=== PATIENT | female | born 1975 | race Caucasian/White ===

== ENCOUNTER 2016-10-09 10:20 | Emergency (ER) | payer OTHER ==
[~2016-10-09] VITALS: Ht 160 cm; Wt 95.0 kg
[~2016-10-09 10:20] MED LIST: CYCL-36 PO; IBUP-232 PO; Z.0.NO CURRENT MEDS
[2016-10-09 10:22] VITALS: BP 154/89; PULSE 86; RESP 24; TEMP 97.9; O2SAT 99
[2016-10-09] MEDS ORDERED: SODIUM CHLOR 0.9% 1000 ML INJ 1,000 ML IV SCH (10:49)
[2016-10-09] MEDS ORDERED: CETI10CA3 (10:52)
[2016-10-09] MEDS ORDERED: KETOROLAC TROMETHAMINE 30 MG/ML (IVP) VIAL IVP ONE (11:00)
[2016-10-09] MEDS ORDERED: ONDANSETRON HCL 4 MG/2 ML VIAL IVP ONE (11:00)
[2016-10-09] MEDS ORDERED: SODIUM CHLORIDE 0.9% FLUSH 10 ML FLUSH IV FLUSH PRN (11:00)
[2016-10-09 11:12] LABS: BACTERIA, URINE RARE /hpf; BLOOD, URINE SMALL (NEG); COMMENT (UR) CULT NOT INDICATED; CULTURE IF INDICATED CULT NOT INDICATED; GLUCOSE,URINE NEG (NEG); KETONE, URINE NEG (NEG); NITRITE,URINE NEG (NEG); PH, URINE 5.5 (5.0-8.5); SQUAMOUS EPITHELIAL CELL URINE 2 /hpf (0-5); URINE COLOR LIGHT-YELLOW (YELLW/STRAW)
[2016-10-09 11:13] LABS: AUTOMATED NEUTROPHIL # 4.8 TH/MM3 (1.8-7.7); BASOPHIL % 0.2 % (0.0-2.0); EOSINOPHIL # 0.1 TH/MM3 (0-0.4); EOSINOPHIL % 1.4 % (0.0-4.0); HEMATOCRIT 45.8 % (35.0-46.0); HEMO FLAGS DIFF FINAL; LYMPH % 31.8 % (9.0-44.0); LYMPHOCYTE # 2.6 TH/MM3 (1.0-4.8); MEAN CELL VOLUME 93.8 FL (80.0-100.0); MEAN CORPUSCULAR HEMOGLOBIN 31.6 PG (27.0-34.0); MEAN CORPUSCULAR HGB CONC 33.6 % (32.0-36.0); MONO % 7.6 % (0.0-8.0); PLATELET COUNT 263 TH/MM3 (150-450); RED BLOOD COUNT 4.88 MIL/MM3 (4.00-5.30); RED CELL DISTRIBUTION WIDTH 12.8 % (11.6-17.2); WHITE BLOOD COUNT 8.2 TH/MM3 (4.0-11.0)
[2016-10-09 11:29] LABS: ALT (GPT) 18 U/L (10-53); ANION GAP 8 MEQ/L (5-15); AST (GOT) 16 U/L (15-37); BICARBONATE 22.2 MEQ/L (21.0-32.0); BLOOD UREA NITROGEN 15 MG/DL (7-18); CHLORIDE 108 MEQ/L (98-107); GLOMERULAR FILTRATION RATE 78 ML/MIN (>89); POTASSIUM 3.9 MEQ/L (3.5-5.1); SODIUM (NA) 138 MEQ/L (136-145)
[2016-10-09 11:31] LABS: ALKALINE PHOSPHATASE 53 U/L (45-117); TOTAL BILIRUBIN ADULT 0.4 MG/DL (0.2-1.0)
--- NOTE | 2016-10-09 11:39 | RADRPT ---
EXAM DATE/TIME: 10/09/2016 11:24 [place] COMPARISON: No previous studies available for comparison. INDICATIONS : Lower left quadrant pain. ORAL CONTRAST: No oral contrast ingested. RADIATION DOSE: 24.61 CTDIvol (mGy) MEDICAL HISTORY : None SURGICAL HISTORY : None. ENCOUNTER: Initial ACUITY: 1 day PAIN SCALE: 7/10 LOCATION: Bilateral lower quadrant TECHNIQUE: Volumetric scanning of the abdomen and pelvis was performed. Using automated exposure control and ad justment of the mA and/or kV according to patient size, radiation dose was kept as low as reasonably achievable to obtain optimal diagnostic quality images. FINDINGS: Lung bases are clear. No acute findings in the liver, spleen, adrenals, kidneys or pancreas. Specific ally no hydronephrosis or evidence for obstructive uropathy. Previous cholecystectomy with surgical c lips in the right upper quadrant. There is fairly diffuse mural thickening of the left side of the transverse colon and left colon kenia acteristic of a mild colitis. There are also numerous diverticula and there is some additional inflam matory change around the diverticulum in the proximal sigmoid colon suggesting a mild diverticulitis as well. There is no free air. No drainable abscess. Trace free fluid in the pelvis. No bowel obstruction. CONCLUSION: 1. CT findings are most characteristic of a mild left-sided colitis and associated mild diverticuliti s in the proximal sigmoid as well. No abscess, obstruction or free air. Trace free fluid. No evidence for obstructive uropathy. Kam López MD on October 09, 2016 at 11:32 Board Certified Radiologist. This report was verified electronically.
[2016-10-09] MEDS ORDERED: CIPR500T2 PO (12:10)
[2016-10-09] MEDS ORDERED: METR-1 PO (12:10)
[2016-10-09] MEDS ORDERED: HYDR-3533 PO (12:10)
--- NOTE | 2016-10-09 12:11 | PD ---
HPI Chief Complaint: Abdominal Pain Time Seen by Provider: 10:45 Travel History International Travel<30 days: No Contact w/Intl Traveler<30days: No Traveled to known affect area: No History of Present Illness HPI 41-year-old female arrives with left lower quadrant pain which woke her up at about 3 or so in the morning. It radiates across the suprapubic abdomen to the right side. She's had nausea. No vomiting fever or diarrhea reported. Positive chills reported. No vaginal bleeding or discharge. Last menstruation 2 weeks prior. She is a history of kidney stones however states symptoms today feel different. PFSH Past Medical History Diminished Hearing: No Kidney Stones: Yes Seizures: Yes ?: Not LMP: 2 weeks ago : 3 Para: 3 Past Surgical History Section: Yes (X 3) Social History Alcohol Use: Yes ("OCCASIONALLY") Tobacco Use: Yes (< 1/2 PPD) Substance Use: No Allergies-Medications (Allergen,Severity, Reaction): Coded Allergies: No Known Allergies (Verified , 10/09/16) Reported Meds & Prescriptions Reported Meds & Active Scripts Active Reported Zyrtec (Cetirizine HCl) 10 Mg Capsule Review of Systems Except as stated in HPI: all other systems reviewed are Neg Gastrointestinal: Positive: Nausea Physical Exam Narrative GENERAL: 41-year-old female well-nourished well-developed moderate distress SKIN: Focused skin assessment warm/dry. HEAD: Atraumatic. Normocephalic. EYES: Pupils equal and round. No scleral icterus. No injection or drainage. ENT: No nasal bleeding or discharge. Mucous membranes pink and moist. NECK: Trachea midline. No JVD. CARDIOVASCULAR: Regular rate and rhythm. No murmur appreciated. RESPIRATORY: No accessory muscle use. Clear to auscultation. Breath sounds equal bilaterally. GASTROINTESTINAL: Tenderness to palpation in the left lower quadrant. No tenderness to percussion of the flanks. Soft. MUSCULOSKELETAL: No obvious deformities. No clubbing. No cyanosis. No edema. NEUROLOGICAL: Awake and alert. No obvious cranial nerve deficits. Motor grossly within normal limits. Normal speech. PSYCHIATRIC: Appropriate mood and affect; insight and judgment normal. Data Data Last Documented VS Vital Signs Date Time Temp Pulse Resp B/P Pulse Ox O2 Delivery O2 Flow Rate FiO2 10/09/16 10:22 97.9 86 24 154/89 99 Room Air Vital signs reviewed Orders Complete Blood Count With Diff (10/09/16 10:49) Comprehensive Metabolic Panel (10/09/16 10:49) Lipase (10/09/16 10:49) Lactic Acid (10/09/16 10:49) Urinalysis - C+S If Indicated (10/09/16 10:49) Iv Access Insert/Monitor (10/09/16 10:49) Ecg Monitoring (10/09/16 10:49) Oximetry (10/09/16 10:49) Ondansetron Inj (Zofran Inj) (10/09/16 11:00) Sodium Chlor 0.9% 1000 Ml Inj (Ns 1000 M (10/09/16 10:49) Sodium Chloride 0.9% Flush (Ns Flush) (10/09/16 11:00) Ketorolac Inj (Toradol Inj) (10/09/16 11:00) Ed Urine Pregnancytest Poc (10/09/16 10:49) Ct Abd/Pel W/O Iv Contrast (10/09/16 10:53) Hydromorphone Pf Inj (Dilaudid Pf Inj) (10/09/16 12:15) Ciprofloxacin 400 Mg Premix (Cipro 400 M (10/09/16 12:15) Metronidazole 500 Mg Inj (Flagyl 500 Mg (10/09/16 12:15) Labs Laboratory Tests Test 10/09/16 10:55 White Blood Count 8.2 TH/MM3 Red Blood Count 4.88 MIL/MM3 Hemoglobin 15.4 GM/DL Hematocrit 45.8 % Mean Corpuscular Volume 93.8 FL Mean Corpuscular Hemoglobin 31.6 PG Mean Corpuscular Hemoglobin 33.6 % Concent Red Cell Distribution Width 12.8 % Platelet Count 263 TH/MM3 Mean Platelet Volume 7.5 FL Neutrophils (%) (Auto) 59.0 % Lymphocytes (%) (Auto) 31.8 % Monocytes (%) (Auto) 7.6 % Eosinophils (%) (Auto) 1.4 % Basophils (%) (Auto) 0.2 % Neutrophils # (Auto) 4.8 TH/MM3 Lymphocytes # (Auto) 2.6 TH/MM3 Monocytes # (Auto) 0.6 TH/MM3 Eosinophils # (Auto) 0.1 TH/MM3 Basophils # (Auto) 0.0 TH/MM3 CBC Comment DIFF FINAL Differential Comment Urine Color LIGHT-YELLOW Urine Turbidity CLEAR Urine pH 5.5 Urine Specific [place] 1.007 Urine Protein NEG mg/dL Urine Glucose (UA) NEG mg/dL Urine Ketones NEG mg/dL Urine Occult Blood SMALL Urine Nitrite NEG Urine Bilirubin NEG Urine Urobilinogen LESS THAN 2.0 MG/DL Urine Leukocyte Esterase NEG Urine RBC 1 /hpf Urine WBC LESS THAN 1 /hpf Urine Squamous Epithelial 2 /hpf Cells Urine Bacteria RARE /hpf Microscopic Urinalysis Comment CULT NOT INDICATED Sodium Level 138 MEQ/L Potassium Level 3.9 MEQ/L Chloride Level 108 MEQ/L Carbon Dioxide Level 22.2 MEQ/L Anion Gap 8 MEQ/L Blood Urea Nitrogen 15 MG/DL Creatinine 0.81 MG/DL Estimat Glomerular Filtration 78 ML/MIN Rate Random Glucose 91 MG/DL Lactic Acid Level 1.8 mmol/L Calcium Level 8.8 MG/DL Total Bilirubin 0.4 MG/DL Aspartate Amino Transf 16 U/L (AST/SGOT) Alanine Aminotransferase 18 U/L (ALT/SGPT) Alkaline Phosphatase 53 U/L Total Protein 7.9 GM/DL Albumin 4.0 GM/DL Lipase 102 U/L MDM Medical Decision Making Medical Screen Exam Complete: Yes Emergency Medical Condition: Yes Differential Diagnosis Constipation, Gastritis, Acute Cholecystitis, Biliary Colic, Pancreatitis, TORRES , Hepatitis, Bowel Obstruction, Cystitis, Mesenteric Ischemia, AAA, Appendicitis , Renal Stone/Hydronephrosis, GERD, perforated viscous Narrative Course CBC & BMP Diagram 10/09/16 10:55 LFTs lactic acid and lipase normal Urinalysis shows no UTI Last 24 hours Impressions Abdomen/Pelvis CT 10/09/16 1053 Signed Impressions: Service Date/Time: September 11:24 - CONCLUSION: 1. CT findings are most characteristic of a mild left-sided colitis and associated mild diverticulitis in the proximal sigmoid as well. No abscess, obstruction or free air. Trace free fluid. No evidence for obstructive uropathy. Kam López MD The patient is resting comfortably and feels better, is alert and in no distress. The patients results and examination findings were discussed. The repeat examination is unremarkable and benign. The history, exam, diagnostic testing, and current condition do not suggest any significant pathology to warrant further testing, continued ED treatment, admission, or surgical evaluation at this point. The vital signs have been stable. The patient does not have uncontrollable pain, intractable vomiting, or other significant symptoms. The patient's condition is stable and appropriate for discharge. The patient will pursue further outpatient evaluation with a primary care physician or other designated or consulting physician as indicated in the discharge instructions. The patient expressed understanding and was agreeable with this plan. Pt understands any severe or worsening pain especially within the next 8 hours should prompt a repeat visit to the ER. Diagnosis Primary Impression: Colitis Additional Impression: Diverticulitis Qualified Code: K57.32 - Diverticulitis of large intestine without perforation or abscess without bleeding Referrals: Primary Care Physician 2 days Additional Instructions: You have a choice when it comes to health care, and we are glad that you chose [facility]. Hopefully, we have met your expectations on today's visit. You are welcome to return to [facility] at any time, as we are committed to meeting the health care needs of our community. Med/Other Pt SpecificInfo: Prescription(s) given Scripts Metronidazole (Flagyl)500 Mg Etd050 Mg PO TID 14 Days Ref 0 Prov:Will Johnson MD 10/09/16 Ciprofloxacin 500 Mg Ppi205 Mg PO BID 14 Days Ref 0 Prov:Will Johnson MD 10/09/16 Hydrocodone-Acetaminophen (Lortab)5-325 Mg Tab1-2 Tab PO Q6H PRN (PAIN SCALE 6 TO 10) #20 TAB Ref 0 Prov:Will Johnson MD 10/09/16 Disposition: 01 DISCHARGE HOME Condition: Stable Will Johnson MD October 09, 2016 12:11
[2016-10-09] MEDS ORDERED: HYDROmorphone HCL PF 1 MG/ML VIAL IV PUSH ONE ×2 (12:15)
[2016-10-09] MEDS ORDERED: metroNIDAZOLE 500 MG INJ 100 ML IV ONE (12:15)
[2016-10-09] MEDS ORDERED: CIPROFLOXACIN 400 MG PREMIX 200 ML IV ONE (12:15)
[2016-10-09 14:44] VITALS: BP 135/76
== END 2016-10-09 14:49 | disposition home or self-care (01) ==
LOC: NEPD 10:20
DX: K52.9 Noninfective gastroenteritis and colitis, unspecified (principal); K57.32 Diverticulitis of large intestine without perforation or abscess without bleeding; R11.0 Nausea; F17.210 Nicotine dependence, cigarettes, uncomplicated
CPT/HCPCS: 74176; 80053; 81001; 83605; 83690; 84703; 85025; 96374; 96375; 99284; J0744; J1170; J1885; J2405; J7030